=== PATIENT | female | born 1940 ===

== ENCOUNTER 2018-03-10 09:06 | Day surgery (SDC) | payer MEDICARE ==
[2018-03-04 14:12] VITALS: BMI 30.8
[2018-03-10] MEDS ORDERED: HYDROmorphone 0.5 mg/0.5 ml ISec IVP PRN (10:57)
[2018-03-10] MEDS ORDERED: ceFAZolin 1 gm in NS 1 GM/100 ML BAG IVPB ONE (11:07)
[2018-03-10] MEDS ORDERED: Propofol 10 mg/ml Inj (20 ML) ONE (11:07)
[2018-03-10] MEDS ORDERED: Midazolam 2 MG/2 ML VIAL ONE (11:08)
[2018-03-10] MEDS ORDERED: Lidocaine 2% MPF (5 ml) Inj ONE (11:12)
[2018-03-10] MEDS ORDERED: Oxycodone/Acetaminophen 5/325 mg Tab PO PRN (11:49)
--- NOTE | 2018-03-10 11:52 | PCM.SURG1 ---
Surgeon's Initial Post Op Note - Surgeon's Notes Surgeon: Dr. Galarza [place] Opener: Chula Shaw PGy2 Pre-Operative Diagnosis: L arm cyst Operative Findings: L arm cyst [id number] Post-Operative Diagnosis: SAme Operation Performed: Excision of L arm cyst Specimen/Specimens Removed: L arm cyst [id number] Estimated Blood Loss: EBL {In ML}: 5 Blood Products Given: N/A Drains Used: No Drains Post-Op Condition: Good Date of Surgery/Procedure: 03/10/18 Time of Surgery/Procedure: 11:51
[2018-03-10 12:02] VITALS: RESP 18; TEMP 97; O2SAT 98
[2018-03-10 12:16] VITALS: BP 111/55; PULSE 66
--- NOTE | 2018-03-13 01:48 | OP ---
PROCEDURE DATE: 03/10/2018 PREOPERATIVE DIAGNOSIS: Cyst, left forearm. POSTOPERATIVE DIAGNOSIS: Cyst, left forearm. PROCEDURE: Excision of soft tissue mass, left forearm. SURGEON: Dr. Teofilo Galarza. INSPECTOR CLIP ON SUNGLASSES: Dr. Shaw. ANESTHESIA: Local with IV sedation. ANESTHESIOLOGIST: Tracey Pierre CRNA. DESCRIPTION OF OPERATION: With the patient in the supine position having received IV sedation, the left arm was positioned across the patient's body to access a dorsal forearm lesion. The left forearm was prepped and draped in the usual sterile manner. There was noted to be a 1 cm subcutaneous firm mass at several inches below the elbow, and the skin surrounding this was infiltrated with 1% lidocaine. An elliptical incision was made in an axial direction and the mass which appeared to have the gross appearance of an inspissated inclusion cyst or a cyst was sharply dissected from the surrounding subcutaneous tissue. The operative site was examined for hemostasis and closure was closed with subcuticular sutures of 4-0 Monocryl and Steri-Strips. A dry sterile dressing was applied. The patient tolerated the procedure well and transferred back to day stay in stable condition. Estimated blood loss for the procedure was 5 mL. Teofilo Galarza MD
== END 2018-03-10 12:17 | disposition home or self-care (01) ==
LOC: C.SDS 09:06
PROVIDERS: ATTEND Specialist
DX: L72.3 Sebaceous cyst (principal)
CPT/HCPCS: 25075; 82948; 88304; J0690; J2250; J2704; J3010